=== PATIENT | female | born 1950 | race Two or more races ===

== ENCOUNTER 2023-10-12 12:34 | Inpatient (IN) | payer OTHER ==
[~2023-10-12] VITALS: Ht 154.9 cm; Wt 69.9 kg
[2023-10-12 12:34] VITALS: BP 149/68; RESP 18; O2SAT 96
[2023-10-12 13:40] VITALS: PULSE 75
[2023-10-12 14:15] LABS: Basophils # (auto) 0 10 ^3/uL (0-0.2); Basophils % (auto) 1.1 % (0.0-2.0); Eosinophils # (auto) 0.2 10 ^3/uL (0-0.8); Eosinophils % (auto) 5.4 % (0.0-7.0); Hematocrit 34.8 % (36.0-46.0); Hemoglobin 11.6 g/dL (12.2-16.2); Lymphocytes # (auto) 0.9 10 ^3/uL (0.4-5.4); Lymphocytes % (auto) 22.3 % (10.0-50.0); Mean Corpuscular Hemoglobin 30.6 pg (28.0-32.0); Mean Corpuscular Hgb Conc. 33.3 g/dL (32.0-36.0); Mean Corpuscular Volume 91.8 fL (80.0-100.0); Monocytes # (auto) 0.5 10 ^3/uL (0-1.3); Monocytes % (auto) 11.5 % (0.0-12.0); Neutrophils # (auto) 2.4 10 ^3/uL (1.6-8.6); Neutrophils % (auto) 59.7 % (37.0-80.0); Nucleated Red Blood Cells % 0.2 %; Red Blood Cells 3.79 10^6/uL (4.0-5.20); Red Cell Distribution Width 15.3 % (11.8-14.3); White Blood Cell 4.1 10^3/uL (4.4-10.8)
[2023-10-12 14:37] LABS: Alanine Aminotransferase 11 U/L (7-40); Albumin 3.4 g/dL (3.2-4.8); Alkaline Phosphatase 69 U/L (46-116); Anion Gap 5 (5-15); Aspartate Aminotransferase 24 U/L (13-40); BUN/Creatinine Ratio 12.7 (10.0-20.0); Bilirubin, Total 1.2 mg/dL (0.2-1.0); Blood Urea Nitrogen 13 mg/dL (9-23); Calcium 8.9 mg/dL (8.5-10.1); Carbon Dioxide 26 mmol/L (20-30); Chloride 109 mmol/L (98-107); Glucose 106 mg/dL (74-106); Potassium 3.8 mmol/L (3.5-5.1); Sodium 140 mmol/L (136-145); Total Protein 5.6 g/dL (5.7-8.2)
[2023-10-12 15:10] LABS: INR 1.17 (0.9-1.15); Partial Thromboplastin Time 29.4 SEC (24.5-34.5); Prothrombin Time 12.2 sec (9.3-11.8)
[2023-10-12] MEDS ORDERED: ACETAMINOPHEN 325 MG TAB PO PRN (17:15)
[2023-10-12] MEDS ORDERED: MORPHINE SULFATE INJ 2 MG/ml SYRG IV PRN ×2 (17:15)
[2023-10-12] MEDS ORDERED: HYDROcodone-ACET 5/325MG TAB PO PRN (17:15)
[2023-10-12] MEDS ORDERED: ONDANSETRON HCL 4 MG/2 ML VIAL IV PRN (17:15)
[2023-10-12] MEDS ORDERED: NITROGLYCERIN 0.4 MG SL TAB SL PRN (17:15)
== END 2023-10-12 20:24 | disposition left against medical advice (07) | DRG 432 ==
LOC: ER 12:34 → TELE 16:59
PROVIDERS: ADMIT Internal Medicine; ATTEND Internal Medicine
DX: K74.69 Other cirrhosis of liver (principal); G93.41 Metabolic encephalopathy; R18.8 Other ascites; K76.82 Hepatic encephalopathy; Z53.29 Procedure and treatment not carried out because of patient's decision for other reasons; R06.03 Acute respiratory distress; Z86.73 Personal history of transient ischemic attack (TIA), and cerebral infarction without residual deficits; Z90.49 Acquired absence of other specified parts of digestive tract
CPT/HCPCS: 36415; 80053; 82140; 83690; 85025; 85610; 85730; 93005; G0378

== ENCOUNTER 2023-10-13 11:46 | Inpatient (IN) | payer OTHER ==
[~2023-10-13] VITALS: Ht 154.9 cm; Wt 58.6 kg
[2023-10-13 12:25] VITALS: PULSE 73; RESP 18; O2SAT 95
[2023-10-13] MEDS: ALBUMIN 25% 100 ML IV PRN (17:28)
[2023-10-13] MEDS ORDERED: ACETAMINOPHEN 325 MG TAB PO PRN (19:15)
[2023-10-13] MEDS ORDERED: ONDANSETRON HCL 4 MG/2 ML VIAL IV PRN (19:15)
[2023-10-13 19:55] VITALS: PULSE 81; RESP 20; O2SAT 97
[2023-10-13] MEDS: cefTRIAXone 1GM/50ML D5W 50 ML IV ONE (20:09)
[2023-10-13] MEDS: metroNIDAZOLE 500MG/100ML 100 ML IV ONE (20:09)
[2023-10-13] MEDS: ALBUMIN 25% 100 ML IV SCH (22:26)
[2023-10-13] MEDS: metroNIDAZOLE 500MG/100ML 100 ML IV SCH (22:51)
[2023-10-14 00:38] LABS: Basophils # (auto) 0 10 ^3/uL (0-0.2); Basophils % (auto) 1.2 % (0.0-2.0); Eosinophils # (auto) 0.2 10 ^3/uL (0-0.8); Eosinophils % (auto) 6.4 % (0.0-7.0); Hematocrit 27.9 % (36.0-46.0); Hemoglobin 9.4 g/dL (12.2-16.2); Lymphocytes # (auto) 0.7 10 ^3/uL (0.4-5.4); Lymphocytes % (auto) 25.7 % (10.0-50.0); Mean Corpuscular Hemoglobin 30.8 pg (28.0-32.0); Mean Corpuscular Hgb Conc. 33.8 g/dL (32.0-36.0); Monocytes # (auto) 0.4 10 ^3/uL (0-1.3); Monocytes % (auto) 12.8 % (0.0-12.0); Neutrophils # (auto) 1.5 10 ^3/uL (1.6-8.6); Neutrophils % (auto) 53.9 % (37.0-80.0); Nucleated Red Blood Cells % 0.1 %; Red Blood Cells 3.07 10^6/uL (4.0-5.20); Red Cell Distribution Width 15.5 % (11.8-14.3); White Blood Cell 2.8 10^3/uL (4.4-10.8)
[2023-10-14 01:19] VITALS: BP 104/60; PULSE 72; RESP 16; O2SAT 97
[2023-10-14 05:00] VITALS: BP 105/49; PULSE 79; RESP 16; TEMP 98.1; O2SAT 99
[2023-10-14 05:27] LABS: Basophils # (auto) 0 10 ^3/uL (0-0.2); Basophils % (auto) 1.1 % (0.0-2.0); Eosinophils # (auto) 0.2 10 ^3/uL (0-0.8); Eosinophils % (auto) 5.9 % (0.0-7.0); Hemoglobin 9.6 g/dL (12.2-16.2); Lymphocytes # (auto) 0.6 10 ^3/uL (0.4-5.4); Lymphocytes % (auto) 22.6 % (10.0-50.0); Mean Corpuscular Hemoglobin 30.3 pg (28.0-32.0); Mean Corpuscular Hgb Conc. 33.2 g/dL (32.0-36.0); Mean Corpuscular Volume 91.2 fL (80.0-100.0); Monocytes # (auto) 0.3 10 ^3/uL (0-1.3); Monocytes % (auto) 11.5 % (0.0-12.0); Neutrophils # (auto) 1.7 10 ^3/uL (1.6-8.6); Neutrophils % (auto) 58.9 % (37.0-80.0); Red Blood Cells 3.18 10^6/uL (4.0-5.20); Red Cell Distribution Width 15.6 % (11.8-14.3); White Blood Cell 2.8 10^3/uL (4.4-10.8)
[2023-10-14 05:32] LABS: Chloride 113 mmol/L (98-107); Sodium 141 mmol/L (136-145)
[2023-10-14 05:33] LABS: Anion Gap 3 (5-15); Carbon Dioxide 25 mmol/L (20-30)
[2023-10-14 05:34] LABS: Calcium 8.3 mg/dL (8.5-10.1)
[2023-10-14 05:38] LABS: BUN/Creatinine Ratio 14.5 (10.0-20.0); Blood Urea Nitrogen 11 mg/dL (9-23); Glucose 86 mg/dL (74-106)
[2023-10-14 08:00] VITALS: BP 102/48; PULSE 63; PULSE 66; RESP 18; TEMP 98
[2023-10-14 08:26] LABS: INR 1.29 (0.9-1.15); Partial Thromboplastin Time 33.9 SEC (24.5-34.5); Prothrombin Time 13.3 sec (9.3-11.8)
[2023-10-14 08:30] VITALS: BP 102/48; PULSE 63; RESP 18; TEMP 98; O2SAT 98
[2023-10-14] MEDS ORDERED: RIS1T PO (08:40)
[2023-10-14] MEDS ORDERED: FLUO-126 PO (08:40)
[2023-10-14] MEDS ORDERED: TRAZ1TAB12 PO (08:40)
[2023-10-14] MEDS ORDERED: SIMV20TA20 PO (08:40)
[2023-10-14] MEDS ORDERED: LEV75T PO (08:40)
[2023-10-14] MEDS: cefTRIAXone 1GM/50ML D5W 50 ML IV SCH (08:42)
[2023-10-14] MEDS: PANTOPRAZOLE 40 MG/10 ML VIAL INJ IV SCH (08:42)
[2023-10-14 12:39] LABS: Basophils # (auto) 0 10 ^3/uL (0-0.2); Basophils % (auto) 1.1 % (0.0-2.0); Eosinophils # (auto) 0.1 10 ^3/uL (0-0.8); Eosinophils % (auto) 5.6 % (0.0-7.0); Hematocrit 29.7 % (36.0-46.0); Hemoglobin 9.7 g/dL (12.2-16.2); Lymphocytes # (auto) 0.6 10 ^3/uL (0.4-5.4); Lymphocytes % (auto) 21.6 % (10.0-50.0); Mean Corpuscular Hemoglobin 30.2 pg (28.0-32.0); Mean Corpuscular Hgb Conc. 32.6 g/dL (32.0-36.0); Mean Corpuscular Volume 92.7 fL (80.0-100.0); Monocytes # (auto) 0.3 10 ^3/uL (0-1.3); Monocytes % (auto) 12.3 % (0.0-12.0); Neutrophils # (auto) 1.6 10 ^3/uL (1.6-8.6); Neutrophils % (auto) 59.4 % (37.0-80.0); Nucleated Red Blood Cells % 0.1 %; Red Blood Cells 3.21 10^6/uL (4.0-5.20); Red Cell Distribution Width 15.9 % (11.8-14.3); White Blood Cell 2.7 10^3/uL (4.4-10.8)
[2023-10-14 13:00] VITALS: BP 94/41; PULSE 64; RESP 17; TEMP 98.2; O2SAT 100
[2023-10-14] MEDS ORDERED: SPIR50TA5 PO (16:20)
[2023-10-14] MEDS ORDERED: FURO20TA3 PO (16:20)
[2023-10-14 16:56] VITALS: BP 102/52; PULSE 66; RESP 17; TEMP 98.5; O2SAT 100
[2023-10-15 08:49] LABS: Hepatitis B Surface Antigen Negative (Negative)
[2023-10-15 09:10] LABS: Hepatitis A Ab IgM Negative; Hepatitis B Core IgM Negative
[2023-10-15 09:11] LABS: Hepatitis C Antibody Negative (Negative)
== END 2023-10-14 18:19 | disposition home or self-care (01) | DRG 433 ==
LOC: ER 11:46 → TELE 19:16 → TELE-EAST 23:53
PROVIDERS: ADMIT Nurse Practitioner Family; ATTEND Internal Medicine
PROC: 0W9G3ZZ Drainage of Peritoneal Cavity, Percutaneous Approach (ICD-10-PCS; principal; 2023-10-13)
DX: K74.60 Unspecified cirrhosis of liver (principal); R18.8 Other ascites; K76.82 Hepatic encephalopathy; R16.1 Splenomegaly, not elsewhere classified; E03.9 Hypothyroidism, unspecified; K76.0 Fatty (change of) liver, not elsewhere classified; I50.9 Heart failure, unspecified; F32.A Depression, unspecified; F41.9 Anxiety disorder, unspecified; Z86.73 Personal history of transient ischemic attack (TIA), and cerebral infarction without residual deficits; Z90.49 Acquired absence of other specified parts of digestive tract; Z87.891 Personal history of nicotine dependence; Z88.5 Allergy status to narcotic agent; K72.10 Chronic hepatic failure without coma
CPT/HCPCS: 36415; 74176; 76705; 76942; 80048; 80074; 85025; 85610; 85730; 87081; 93005; 96365; 96367; 96368; C9113; G0378; J3490; P9047